=== PATIENT | female | born 1960 | race Caucasian/White ===

== ENCOUNTER 2018-04-11 11:33 | Inpatient (IN) | payer OTHER ==
[~2018-04-11] VITALS: Ht 172.7 cm; Wt 68.4 kg
[2018-04-11] MEDS ORDERED: MORPHINE SULFATE 4 MG/ML, 1ML IVPush ONE (12:00)
[2018-04-11] MEDS ORDERED: ONDANSETRON 2MG/ML, 2ML ONE ×2 (12:48→17:39)
[2018-04-11] MEDS ORDERED: MORPHINE SULFATE 4 MG/ML, 1ML ONE (12:48)
[2018-04-11 12:51] LABS: BASOPHILS # (AUTO) 0.04 x10^3/uL (0-0.1); BASOPHILS % (AUTO) 1 % (0-1); EOSINOPHILS # (AUTO) 0.07 x10^3/uL (0-0.4); EOSINOPHILS % (AUTO) 1 % (1-7); LYMPHOCYTES # (AUTO) 1.37 x10^3/uL (1-3.4); LYMPHOCYTES % (AUTO) 15 % (22-44); MD NO; MEAN CORPUSCULAR HEMOGLOBIN 26.8 pg (27.0-34.8); MEAN CORPUSCULAR HGB CONC 32.8 g/dL (32.4-35.8); MEAN CORPUSCULAR VOLUME 81.8 fL (80-100); MEAN PLATELET VOLUME 8.6 fL (7.4-10.4); MONOCYTES # (AUTO) 0.52 x10^3/uL (0.2-0.8); MONOCYTES % (AUTO) 6 % (2-9); NEUTROPHILS # (AUTO) 7.22 x10^3/uL (1.8-6.8); NEUTROPHILS % (AUTO) 78 % (42-75); PLATELET COUNT 222 x10^3/uL (130-400); RED BLOOD COUNT 5.14 x10^6/uL (3.82-5.3); RED CELL DISTRIBUTION WIDTH 14.6 % (9.6-15.2)
[2018-04-11] MEDS ORDERED: ONDANSETRON 2MG/ML, 2ML IVPush PRN (13:00)
[2018-04-11] MEDS ORDERED: FENTANYL PF 100 MCG/2ML IVPush PRN (13:00)
[2018-04-11] MEDS ORDERED: MORPHINE SULFATE 4 MG/ML, 1ML IVPush PRN (13:00)
[2018-04-11 13:05] LABS: ANION GAP 8 mmol/L (5-15); CALCIUM 9.4 mg/dL (8.5-10.1); CHLORIDE 107 mmol/L (98-107); CREATININE 0.81 mg/dL (0.55-1.02)
[2018-04-11] MEDS ORDERED: FENTANYL PF 100 MCG/2ML ONE ×3 (13:11→17:04)
[2018-04-11] MEDS ORDERED: CETI-158 PO (13:29)
[2018-04-11] MEDS ORDERED: DIPH25CA61 PO (13:29)
[2018-04-11] MEDS ORDERED: SODIUM CHLORIDE 0.9% 1,000 ML IV ONE (14:00)
[2018-04-11] MEDS ORDERED: SODIUM CHLORIDE FLUSH 10ML SYR IVF PRN (14:00)
[2018-04-11 14:48] VITALS: BP 117/74
[2018-04-11] MEDS ORDERED: SCOPOLAMINE PATCH, 1.5MG PATCH.TD72 TD ONE (16:02)
[2018-04-11] MEDS ORDERED: DIPHENHYDRAMINE 50 MG/ML, 1ML ONE (16:05)
[2018-04-11] MEDS ORDERED: PROPOFOL 10 MG/ML, 50ML ONE (16:05)
[2018-04-11] MEDS ORDERED: FENTANYL PF 100 MCG/2ML IV PRN (17:00)
[2018-04-11] MEDS ORDERED: HALOPERIDOL 5 MG/ML IV PRN (17:00)
[2018-04-11] MEDS ORDERED: DIPHENHYDRAMINE 50 MG/ML, 1ML IVPush PRN (17:00)
[2018-04-11] MEDS ORDERED: hydrALAzine 20 MG/ML, 1ML IV PRN (17:00)
[2018-04-11] MEDS ORDERED: LABETALOL 5MG/ML, 20ML IV PRN (17:00)
[2018-04-11] MEDS ORDERED: METOPROLOL 1 MG/ML, 5ML IV PRN (17:00)
[2018-04-11] MEDS ORDERED: HYDROcodone/APAP 7.5-325MG/15ML UDC PO PRN (17:00)
[2018-04-11] MEDS ORDERED: PROCHLORPERAZINE 5 MG/ML, 2ML IV PRN (17:00)
[2018-04-11] MEDS ORDERED: HYDROmorphone 1 MG/ML, 1ML IV PRN ×2 (17:00→20:00)
[2018-04-11] MEDS ORDERED: GLYCOPYRROLATE 0.2MG/1ML, 5ML ONE (17:39)
[2018-04-11] MEDS ORDERED: ROCURONIUM 10MG/ML,5ML ONE (17:39)
[2018-04-11] MEDS ORDERED: NEOSTIGMINE 1 MG/ML, 10ML ONE (17:39)
[2018-04-11] MEDS ORDERED: SUCCINYLCHOLINE 20 MG/ML, 10ML ONE (17:39)
[2018-04-11] MEDS ORDERED: DEXAMETHASONE 4 MG/ML, 1ML ONE (17:39)
[2018-04-11] MEDS ORDERED: PROPOFOL 10 MG/ML, 20ML ONE (17:39)
[2018-04-11] MEDS ORDERED: CEFAZOLIN 1,000 MG ONE (17:39)
[2018-04-11] MEDS ORDERED: MEPERIDINE/PF 50 MG/ML ONE (18:19)
[2018-04-11] MEDS: MEPERIDINE/PF 25MG/0.5ML IVPush PRN ×2 (18:21→18:40)
[2018-04-11] MEDS ORDERED: ONDANSETRON 2MG/ML, 2ML IV PRN (20:00)
[2018-04-11] MEDS ORDERED: CEFAZOLIN 1,000 MG in SODIUM CHLORIDE 0.9% 50 ML IVPB SCH (20:00)
[2018-04-11 20:12] VITALS: BP 142/91
[2018-04-11] MEDS: POTASSIUM CHLORIDE 40 MEQ in D5%-0.45% NACL 1,000 ML IV SCH (20:34)
[2018-04-11] MEDS ORDERED: DIPHENHYDRAMINE 25 MG CAPSULE PO SCH (21:00)
[2018-04-12] MEDS: CEFAZOLIN PMX 1GM/50ML 50 ML IVPB SCH ×2 (00:17→08:20)
[2018-04-12] MEDS: OXYcodone IR 5MG TABLET PO PRN ×6 (00:27→15:45)
[2018-04-12 01:15] VITALS: BP 125/84
[2018-04-12 07:59] VITALS: BP 115/71
[2018-04-12] MEDS ORDERED: ASPIRIN 81 MG TABLET CHEW PO SCH (09:00)
[2018-04-12] MEDS: POTASSIUM CHLORIDE 40 MEQ in D5%-0.45% NACL 1,000 ML IV SCH (11:27)
[2018-04-12 14:26] VITALS: BP 131/84
[2018-04-12] MEDS ORDERED: OXYC5TAB2 PO (14:36)
[2018-04-12] MEDS ORDERED: ASPI-496 PO (15:08)
== END 2018-04-12 16:20 | disposition home or self-care (01) | DRG 494 ==
LOC: ED 12:37 → 4NOR 12:38 → ED 12:38 → 4NOR 13:50 → ED 13:50
PROVIDERS: ADMIT Orthopaedic Surgery; ATTEND Orthopaedic Surgery
PROC: 0QSJ04Z Reposition Right Fibula with Internal Fixation Device, Open Approach (ICD-10-PCS; 2018-04-11)
PROC: 0QSG04Z Reposition Right Tibia with Internal Fixation Device, Open Approach (ICD-10-PCS; principal; 2018-04-11 16:00)
DX: S82.301A Unspecified fracture of lower end of right tibia, initial encounter for closed fracture (principal); S82.831A Other fracture of upper and lower end of right fibula, initial encounter for closed fracture; W01.0XXA Fall on same level from slipping, tripping and stumbling without subsequent striking against object, initial encounter; Y93.89 Activity, other specified; Y92.89 Other specified places as the place of occurrence of the external cause; Y99.8 Other external cause status; Z85.3 Personal history of malignant neoplasm of breast; Z88.8 Allergy status to other drugs, medicaments and biological substances
CPT/HCPCS: 36415; 73590; 73600; 73610; 76001; 99285; J3490; 71045; 80048; 85025; 93005; 96374; C1713; G0378; J0690; J1100; J2175; J2405; J2704; J2710; J3010; J3480; J0330; J1200; Q0163